=== PATIENT | male | born 1960 | race Caucasian/White ===

== ENCOUNTER → 2023-05-15 16:29 | Outpatient (CLI) | payer OTHER, SELFPAY ==
[2023-05-15 16:41] LABS: Appearance Urine UA CLEAR; Bilirubin Urine UA NEGATIVE (NEGATIVE); Color Urine UA YELLOW; Glucose Urine UA NEGATIVE (Negative); Ketones Urine UA NEGATIVE (NEGATIVE); Leukocyte Esterase Urine UA NEGATIVE (NEGATIVE); Nitrite Urine UA NEGATIVE (Negative); Occult Blood Urine UA 3+ (Negative); Protein Urine UA NEGATIVE (Negative); pH Urine UA 5.5 (4.5-8.0)
[2023-05-15 17:00] LABS: Bacteria Urine None Seen; RBC Urine 5-10/HPF (0-5/HPF)
[2023-05-15 17:01] LABS: Culture Indicated Urine Cult Not Indicated; Squamous Epithelial Cell Urine 0-1 /HPF (0-5/HPF); WBC Urine None Seen (0-5/HPF)
== END ==
PROVIDERS: PCP Family Medicine; Visit Provider Specialist
DX: N40.1 Benign prostatic hyperplasia with lower urinary tract symptoms (principal); N13.8 Other obstructive and reflux uropathy; R97.20 Elevated prostate specific antigen [PSA]; R31.29 Other microscopic hematuria
CPT/HCPCS: 51798; 81001; 81002; 99214

== ENCOUNTER → 2023-08-19 09:41 | Outpatient (CLI) | payer OTHER, SELFPAY ==
--- NOTE | 2023-08-19 09:44 | DI.RAD.S_ITS ---
PROCEDURE: XR KUB INDICATIONS: Kidney Stones TECHNIQUE: One view of the abdomen acquired. COMPARISON: None. FINDINGS: Surgical changes and devices: Right upper quadrant surgical clips. Bilateral hip arthroplasties. Bowel: Bowel gas pattern is normal. Soft tissues: Possible left renal stones measuring up to 9 mm. Visualized solid organ contours appear normal in size. Bones: No suspicious bony lesions. IMPRESSION: Possible left renal stones measuring up to 9 mm, evaluation is limited by overlying bowel.. Dictated by: Bernardino Mullins M.D. on 08/19/2023 at 11:53 Approved by: Bernardino Mullins M.D. on 08/19/2023 at 11:54
== END ==
PROVIDERS: PCP Family Medicine; Referring Provider Specialist; Visit Provider Specialist
DX: N20.0 Calculus of kidney (principal); N40.1 Benign prostatic hyperplasia with lower urinary tract symptoms; N13.8 Other obstructive and reflux uropathy; R97.20 Elevated prostate specific antigen [PSA]
CPT/HCPCS: 52000; 74018; 76872; 81002; 99215

== ENCOUNTER 2023-08-29 06:14 | Day surgery (SDC) | payer OTHER, SELFPAY ==
[2023-08-28 15:02] VITALS: BMI 35.4
[2023-08-29] VITALS (7 sets, daily range): BP systolic 90–142; BP diastolic 47–89; PULSE 53–111; RESP 18–20; TEMP 36.1–36.6; O2SAT 94–96; BMI 35.4
--- NOTE | 2023-08-29 06:00 | DI.RAD.S_ITS ---
PROCEDURE: XR KUB INDICATIONS: Left renal calculus TECHNIQUE: One view of the abdomen acquired. COMPARISON: [facility], , XR KUB, 08/19/2023, 9:47. FINDINGS: Surgical changes and devices: There is prior bilateral total hip arthroplasty. Bowel: Bowel gas pattern is normal. Soft tissues: Multiple lobulated calcifications are noted projecting in the region of left renal fossa unchanged in size and distribution compared to previous study. The 2 largest calcifications measures 9 millimeter and 7 millimeter in size.. Visualized solid organ contours appear normal in size. Bones: No suspicious bony lesions. IMPRESSION: Stable appearance of left renal calculi. No gross free air. Dictated by: Michael Tapia M.D. on 08/29/2023 at 10:25 Approved by: Michael Tapia M.D. on 08/29/2023 at 10:54
[2023-08-29] MEDS: LACTATED RINGERS 1,000 ML 21 ML IV (06:51)
--- NOTE | 2023-08-29 07:24 | PM.PREOP ---
Pre-operative Note Interval Note History & Physical reviewed/Exam performed by Physician: Yes Changes to H&P: No
--- NOTE | 2023-08-29 07:59 | SUR.OPER ---
Supine on ESWL table, head on pillow, arms padded and tucked at sides, legs uncrossed, warm blankets placed on patient.Gel pad under lower legs.
--- NOTE | 2023-08-29 08:25 | PM.OP.1 ---
Operative Date/Time/Diagnoses Date of procedure: 08/29/23 Time of procedure: 08:26 Pre-op diagnosis: 1. Left renal calculi 2. Hematuria Post-op diagnosis: same Procedure & Clinicians Procedure: 1. Left extracorporeal shockwave lithotripsy (maximal power level 7.5 x 2500 shocks). Same procedure as scheduled: Yes Indications: 1. Left renal calculi 2. Hematuria Surgeon: Graeme Watters Click Yes if Unassisted: Yes Anesthesia Type: General Operative Notes Findings: 1. Three index calculi documented on immediate preoperative plain radiograph. The dominant calculus again seen in the central renal collecting system on the left. Closure Type: not applicable Specimen(s): none sent Estimated Blood Loss (mL): 0 Blood products transfused: none Procedure in detail: The patient was positioned in supine was administered general anesthesia. The above-described dominant index calculus was then localized in the X, Y, and Z plane. Lithotripsy was then commenced at minimal power level for 200 shocks. A 2 minute pause was then conducted. Lithotripsy was then resumed and the power level gradually increased to 7.5. There was good evidence of stone comminution. Localization of left lateral interpolar calculus was then conducted and again localized in the X, Y, and Z plane. Lithotripsy was resumed at 7.5. Again, good evidence of stone comminution. Attention was then turned to the 3rd calculus residing in the lower pole. Again, the stone was localized in the X, Y, and Z plane. Lithotripsy was resumed and treatment was continued until 2000 shocks. Attention was then directed toward the residual fragments of the dominant index calculus treated at the initiation of the case. An additional 500 shocks were delivered to this cluster of fragments. Treatment was halted at 2500 shocks. The patient was then awakened, transferred to [facility], and then transported to recovery in stable condition. Complications: none Post-operative Condition: stable Disposition: PACU Plan for aftercare: Discharge home
[2023-08-29] MEDS: FUROSEMIDE 40 MG/4 ML VIAL 20 MG IV (08:48)
== END 2023-08-29 09:33 | disposition home or self-care (01) ==
PROVIDERS: PCP Family Medicine; Referring Provider Specialist; Visit Provider Specialist
PROC: (CPT 50590; principal; 2023-08-29 07:45)
DX: N20.0 Calculus of kidney (principal)
CPT/HCPCS: 50590; 74018; J1940; J2250; J2704

== ENCOUNTER → 2023-11-27 11:10 | Outpatient (CLI) | payer OTHER, SELFPAY ==
--- NOTE | 2023-11-27 11:12 | DI.RAD.S_ITS ---
PROCEDURE: XR KUB INDICATIONS: status post left ESWL TECHNIQUE: One view of the abdomen acquired. COMPARISON: [facility], , XR KUB, 08/29/2023, 6:44. FINDINGS: Surgical changes and devices: Cholecystectomy clips. Bilateral hip arthroplasties. Bowel: Bowel gas pattern is normal. Normal to slightly increased quantity of stool diffusely. Soft tissues: No suspicious abdominal calcifications. Bowel gas overlies the left renal shadow. Possible calcifications redemonstrated in the left lower pole and expected location of the left renal pelvis. Visualized solid organ contours appear normal in size. Bones: No suspicious bony lesions. IMPRESSION: Possible calcification at the left renal pelvis, though smaller when compared to the plain film 08/29/23. If there is concern for obstruction, CT is recommended. Dictated by: Argelia Muniz M.D. on 11/27/2023 at 17:18 Approved by: Argelia Muniz M.D. on 11/27/2023 at 17:20
== END ==
LOC: RAD 11:11
PROVIDERS: PCP Family Medicine; Referring Provider Specialist; Visit Provider Specialist
DX: N20.0 Calculus of kidney (principal); R31.29 Other microscopic hematuria; Z87.442 Personal history of urinary calculi; Z98.890 Other specified postprocedural states
CPT/HCPCS: 74018

== ENCOUNTER → 2023-12-05 10:50 | Outpatient (CLI) | payer OTHER, SELFPAY ==
--- NOTE | 2023-12-05 10:51 | DI.RAD.S_ITS ---
PROCEDURE: XR KUB INDICATIONS: Left renal calculus TECHNIQUE: One view of the abdomen acquired. COMPARISON: [facility], CR, XR KUB, 11/27/2023, 11:22. [facility], CR, XR KUB, 08/29/2023, 6:44. FINDINGS: Surgical changes and devices: Right upper quadrant surgical clips. Bilateral hip arthroplasties. Bowel: Bowel gas pattern is normal. Soft tissues: Small calcification again projecting over the inferior pole of left kidney. Previously seen possible calcification projecting over the left renal pelvis is not definitely visualized. Visualized solid organ contours appear normal in size. Bones: No suspicious bony lesions. IMPRESSION: Stable nonobstructing left renal calculus. Previously seen left paraspinal calcification is not visualized. Approved by: Marko Verma M.D. on 12/05/2023 at 12:50
== END ==
PROVIDERS: PCP Family Medicine; Referring Provider Specialist; Visit Provider Specialist
DX: N20.0 Calculus of kidney (principal); Z87.442 Personal history of urinary calculi; Z98.890 Other specified postprocedural states
CPT/HCPCS: 74018